=== PATIENT | male | born 1985 | race Caucasian/White ===

== ENCOUNTER 2017-07-26 07:45 | Emergency (ER) | payer SELFPAY ==
--- NOTE | 2017-07-26 08:57 | ER Document Report ---
HPI - HPI Pain Level: 4 Notes: Patient is a 31-year-old male with a history of hypertension who presents the ED complaining of left ear pain 1 week. The pain has been worsening over the last couple days. The pain is described as a throb and does not radiate. He has not noticed any drainage, but has had some decreased hearing. Patient states that he has been using [id number] meds with minimal relief. 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 He denies any recent illness. He still eating and drinking without any difficulties. Denies any IV drug use. Denies any other significant past medical history. Denies any headache, fever, head injury, neck pain/stiffness, dizziness, tinnitus, URI , sore throat, chest pain, palpitations, syncope, cough, shortness of breath, wheeze, dyspnea, abdominal pain, nausea/vomiting/diarrhea, urinary retention, dysuria, hematuria, or rash. - ROS Notes: REVIEW OF SYSTEMS: CONSTITUTIONAL : Denies fever, chills, or sweats. Denies recent illness. EENT: see hpi. No eye complaints. CARDIOVASCULAR: Denies chest pain. Denies palpitations or racing or irregular heart beat. Denies ankle edema. RESPIRATORY: Denies cough, cold, or chest congestion. Denies shortness of breath, difficulty breathing, or wheezing. GASTROINTESTINAL: Denies abdominal pain or distention. Denies nausea, vomiting , or diarrhea. Denies blood in vomitus, stools, or per rectum. Denies black, tarry stools. Denies constipation. GENITOURINARY: Denies difficulty urinating, painful urination, burning, frequency, blood in urine, or discharge. MUSCULOSKELETAL: Denies back or neck pain or stiffness. Denies joint pain or swelling. SKIN: Denies rash, lesions or sores. NEUROLOGICAL: Denies confusion or altered mental status. Denies passing out or loss of consciousness. Denies dizziness or lightheadedness. Denies headache. Denies weakness or paralysis or loss of use of either side. Denies problems with gait or speech. Denies sensory loss, numbness, or tingling. ALL OTHER SYSTEMS REVIEWED AND NEGATIVE. Dictation was performed using [employer] voice recognition software - CARDIOVASCULAR Cardiovascular: DENIES: Chest pain - DERM Skin Color: Normal Past Medical History - Social History Smoking Status: Current Some Day Smoker Chew tobacco use (# tins/day): No Frequency of alcohol use: None Drug Abuse: None Family History: Reviewed & Not Pertinent Patient has suicidal ideation: No Patient has homicidal ideation: No Renal/ Medical History: Denies: Hx Peritoneal Dialysis Past Surgical History: Reports: Hx Oral Surgery Vertical Provider Document - CONSTITUTIONAL Agree With Documented VS: Yes Notes: PHYSICAL EXAMINATION: GENERAL: Well-appearing, well-nourished and in no acute distress. HEAD: Atraumatic, normocephalic. EYES: Pupils equal round and reactive to light, extraocular movements intact, sclera anicteric, conjunctiva are normal. ENT: Rt EAC/TM wnl. Lt EAC inflamed, erythemic, tender. TM not visualized to left. Nares patent and without discharge. oropharynx clear without exudates. No tonsilar hypertrophy or erythema. Moist mucous membranes. No sinus tenderness. No facial swelling. No mastoid tenderness. No palatine shift. uvula midline. No tongue protrusion. NECK: Normal range of motion, supple without lymphadenopathy. No rigidity/ meningismus. LUNGS: Breath sounds clear to auscultation bilaterally and equal. No wheezes rales or rhonchi. HEART: Regular rate and rhythm without murmurs, rubs, gallops. NEUROLOGICAL: Cranial nerves grossly intact. Normal speech, normal gait. Normal sensory, motor exams PSYCH: Normal mood, normal affect. SKIN: Warm, Dry, normal turgor, no rashes or lesions noted. - INFECTION CONTROL TRAVEL OUTSIDE OF THE [place] IN LAST 30 DAYS: No - RESPIRATORY O2 Sat by Pulse Oximetry: 100 Course - Re-evaluation Re-evalutation: 07/26/17 09:10 Patient is an afebrile, well-hydrated, 31-year-old male who presents the ED with acute left otitis externa. Vitals are stable. PE otherwise unremarkable. Low suspicion for any mastoiditis, meningitis, sepsis, peritonsillar/ pharyngeal abscess, respiratory compromise, Stanislav's, temporal arteritis, or other emergent systemic condition at this time. Patient is aware this condition can change from initial presentation and he needs to monitor symptoms closely. An ear wick was placed today and Ciprodex was applied. I will send him home with the rest of the medication for him to complete twice a day for 7 days. Conservative measures otherwise for symptoms. Consider consult with ENT. Recheck with your PCM this week. Return to the ED with any worsening/ concerning symptoms otherwise as reviewed in discharge. Patient is in agreement. - Vital Signs Vital signs: Temp Pulse Resp BP Pulse Ox 99.0 F 84 18 140/96 H 100 07/26/17 07:57 07/26/17 07:57 07/26/17 07:57 07/26/17 07:57 07/26/17 07:57 Discharge - Discharge Clinical Impression: Acute otitis externa of left ear Qualifiers: Otitis externa type: unspecified type Qualified Code(s): H60.502 - Unspecified acute noninfective otitis externa, left ear Condition: Stable Disposition: HOME, SELF-CARE Instructions: Acetaminophen, Using Ear Drops with a Wick ([facility]), Otitis Externa ([facility]) Additional Instructions: Keep ears clean and dry Avoid swimming until infection heals Maintain adequate fluid intake Take meds as directed tylenol/ibuprofen as needed over the counter cold medication as needed for symptoms F/u: with your PCM x1wk Consider consult with ENT for ongoing/worsening symptoms Return to the ED with any fever, worsening pain, chest pain, palpitations, syncope, worsening NATH, neck pain/stiffness, shortness of breath, wheezing, drooling, trouble swallowing/breathing, abdominal pain, n/v/d, rash, or worsening/concerning symptoms otherwise. Forms: Elevated Blood Pressure, Smoking Cessation Education Referrals: ZAMZAM JUAREZ MD [YASMANI MONTOYA] - Follow up as needed
[2017-07-26] MEDS ORDERED: CIPROFLOXACIN HCL/DEXAMETH OTIC DROP 7.5 ML AS ONE (08:59)
[2017-07-26 09:11] VITALS: BP 136/93
== END 2017-07-26 09:15 | disposition home or self-care (01) ==
LOC: ER 07:45
DX: H60.502 Unspecified acute noninfective otitis externa, left ear (principal); I10 Essential (primary) hypertension; F17.200 Nicotine dependence, unspecified, uncomplicated
CPT/HCPCS: 99283; J3490

== ENCOUNTER 2017-07-28 11:35 | Emergency (ER) | payer SELFPAY ==
[2017-07-28 11:54] VITALS: BP 159/100
--- NOTE | 2017-07-28 12:14 | ER Document Report ---
HPI - HPI Patient complains to provider of: Left ear decreased hearing Onset: Other - 2 days Onset/Duration: Persistent Quality of pain: Achy Pain Level: 1 Context: Patient presents complaining of decreased hearing to his left ear. Patient states he was seen here 2 days ago diagnosed with otitis externa and had an ear wick placed and placed on Ciprodex eardrops. Patient states that the ear pain is improved although his hearing is still muffled. Associated Symptoms: Earache Exacerbated by: Denies Relieved by: Denies Similar symptoms previously: No Recently seen / treated by doctor: Yes - ROS ROS below otherwise negative: Yes Systems Reviewed and Negative: Yes All other systems reviewed and negative - CONSTITUTIONAL Constitutional: DENIES: Fever - EENT Notes: Decreased hearing - CARDIOVASCULAR Cardiovascular: DENIES: Chest pain - GASTROINTESTINAL Gastrointestinal: DENIES: Nausea, Patient vomiting - MUSCULOSKELETAL Musculoskeletal: DENIES: Back Pain, Neck Pain - DERM Skin Color: Normal Skin Problems: None Past Medical History - General Information source: Patient - Social History Smoking Status: Current Some Day Smoker Chew tobacco use (# tins/day): No Frequency of alcohol use: None Drug Abuse: None Occupation: Pool attended Family History: Reviewed & Not Pertinent Patient has suicidal ideation: No Patient has homicidal ideation: No - Past Medical History Cardiac Medical History: Reports: Hx Hypertension Renal/ Medical History: Denies: Hx Peritoneal Dialysis Past Surgical History: Reports: Hx Oral Surgery - Immunizations Hx Diphtheria, Pertussis, Tetanus Vaccination: Yes Vertical Provider Document - CONSTITUTIONAL Agree With Documented VS: Yes Exam Limitations: No Limitations General Appearance: WD/WN, No Apparent Distress - INFECTION CONTROL TRAVEL OUTSIDE OF THE [place] IN LAST 30 DAYS: No - HEENT HEENT: Atraumatic, Normocephalic Notes: Patient with mild swelling and debris to left external auditory canal, no pain with movement of left helix, no mastoid tenderness or swelling. - NECK Neck: Normal Inspection, Supple. negative: Lymphadenopathy-Left, Lymphadenopathy-Right - RESPIRATORY Respiratory: Breath Sounds Normal, No Respiratory Distress O2 Sat by Pulse Oximetry: 96 - CARDIOVASCULAR Cardiovascular: Regular Rate, Regular Rhythm - MUSCULOSKELETAL/EXTREMETIES Musculoskeletal/Extremeties: MAEW - NEURO Level of Consciousness: Awake, Alert, Appropriate Motor/Sensory: No Motor Deficit - DERM Integumentary: Warm, Dry, No Rash Course - Re-evaluation Re-evalutation: 07/28/17 No concern for mastoiditis, ear culture obtained, patient encouraged to continue his treatment. Discussed worsening symptoms the patient should return immediately for. - Vital Signs Vital signs: Temp Pulse Resp BP Pulse Ox 98.6 F 100 16 159/100 H 96 07/28/17 11:50 07/28/17 11:50 07/28/17 11:50 07/28/17 11:50 07/28/17 11:50 Discharge - Discharge Clinical Impression: Acute otitis externa of left ear Qualifiers: Otitis externa type: unspecified type Qualified Code(s): H60.502 - Unspecified acute noninfective otitis externa, left ear Condition: Stable Disposition: HOME, SELF-CARE Instructions: Use of Ear Drops ([facility]), Using Ear Drops with a Wick ([facility]), Otitis Externa ([facility]) Additional Instructions: Return immediately for any new or worsening symptoms Followup with your primary care provider, call tomorrow to make a followup appointment Follow-up with ear nose and throat doctor for recheck. Continue to use your eardrops as previously prescribed. Culture is pending, we will call if you need any different treatment Forms: Return to Work Referrals: [facility] [Provider Group] - Follow up tomorrow
== END 2017-07-28 12:26 | disposition home or self-care (01) ==
LOC: ER 11:35
DX: H60.502 Unspecified acute noninfective otitis externa, left ear (principal); H91.92 Unspecified hearing loss, left ear; Z79.899 Other long term (current) drug therapy; F17.200 Nicotine dependence, unspecified, uncomplicated
CPT/HCPCS: 87070; 87077; 87186; 87205; 99283